=== PATIENT | male | born 1965 ===

== ENCOUNTER 2016-12-31 16:28 | Observation (INO) | payer OTHER ==
[2016-12-31 17:18] LABS: EOS % 0.1 % (0.0-4.0); HEMATOCRIT 42.4 % (35.0-51.0); LYMPH # 0.9 K/uL (1.0-4.3); LYMPH % 21.3 % (20.0-40.0); MEAN CELL VOLUME 88.2 fl (80.0-94.0); MEAN CORPUSCULAR HEMOGLOBIN 29.6 pg (27.0-31.0); MEAN CORPUSCULAR HGB CONC 33.5 g/dL (33.0-37.0); MEAN PLATELET VOLUME 8.7 fl (7.2-11.7); MONO # 0.4 K/uL (0.0-0.8); MONO % 10.1 % (0.0-10.0); NEUT # 2.8 K/uL (1.8-7.0); NEUT % 67.5 % (50.0-75.0); NRBC % 0.1 % (0.0-0.0); RED CELL DISTRIBUTION WIDTH 13.6 % (11.5-14.5); WHITE BLOOD COUNT 4.2 K/uL (4.8-10.8)
[2016-12-31] MEDS ORDERED: HYDROmorphone 0.5 mg/0.5 ml ISec ONE (17:18)
[2016-12-31] MEDS ORDERED: HYDROmorphone 0.5 mg/0.5 ml ISec IVP STA (17:22)
--- NOTE | 2016-12-31 17:29 | ED PDOC ---
HPI: General Adult Time Seen by Provider: 12/31/16 16:40 Chief Complaint (Nursing): Trauma Chief Complaint (Provider): Fall History/Exam Limitations: no limitations Onset/Duration Of Symptoms: Hrs (about 7 hours ago) Additional Complaint(s): 16:42 Freddy Ruiz is a 51 year old male with no past medical history that presents to the ED after falling off of a 10 foot ladder and onto his back at 10:00 AM this morning. Patient states that he did not hit his head, but that his back pain is so severe he is having trouble breathing. He denies any headache, chest pain, or neck pain. PMD: None Past Medical History Reviewed: Historical Data, Nursing Documentation, Vital Signs Vital Signs: Last Vital Signs Temp 97.5 F L 12/31/16 22:31 Pulse 76 12/31/16 22:31 Resp 16 12/31/16 22:31 BP 128/83 12/31/16 22:31 Pulse Ox 99 12/31/16 22:46 - Medical History PMH: No Chronic Diseases - Surgical History Surgical History: No Surg Hx - Family History Family History: States: Unknown Family Hx - Social History Current smoker - smoking cessation education provided: No (pt states he smokes occasionally) Ex-Smoker (has not smoked in the last 12 months): (patient states he smokes occasionally) Alcohol: Occasional Drugs: Denies - Home Medications Home Medications: Ambulatory Orders Medication Instructions Recorded No Known Home Med 12/31/16 - Allergies Allergies/Adverse Reactions: Allergies Allergy/AdvReac Type Severity Reaction Status Date / Time No Known Allergies Allergy Verified 12/31/16 16:37 Review of Systems ROS Statement: Except As Marked, All Systems Reviewed And Found Negative Cardiovascular: Negative for: Chest Pain Musculoskeletal: Positive for: Back Pain. Negative for: Neck Pain Neurological: Negative for: Headache Physical Exam - Reviewed Nursing Documentation Reviewed: Yes Vital Signs Reviewed: Yes - Physical Exam Appears: Positive for: Non-toxic, No Acute Distress Head Exam: Positive for: ATRAUMATIC, NORMOCEPHALIC Skin: Positive for: Normal Color, Warm Eye Exam: Positive for: Normal appearance ENT: Positive for: Normal ENT Inspection Neck: Positive for: Normal, Painless ROM Cardiovascular/Chest: Positive for: Regular Rate, Rhythm. Negative for: Murmur Respiratory: Positive for: Normal Breath Sounds. Negative for: Decreased Breath Sounds Gastrointestinal/Abdominal: Positive for: Normal Exam Back: Positive for: Other (bilateral paraspinal tenderness, no step offs, hematoma). 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 Negative for: Aphasia, Facial Droop Comments: no hematomas, no skin breakdown - Laboratory Results Result Diagrams: 12/31/16 17:00 12/31/16 17:00 - ECG O2 Sat by Pulse Oximetry: 99 (RA) Pulse Ox Interpretation: Normal Medical Decision Making Medical Decision Makin:50 Initial Impression: Back Pain Initial Plan: * CT Scan Cervical Spine w/o contrast * CT Scan Head w/o contrast * CT Scan Lumbar Spine w/o contrast * CT Scan Thoracic Spine w/o contrast * Chest X-Ray * CBC * PTT * PT * Urine C&S * Urinalysis * Morphine 6 mg IV * Reevaluation 21:15 Reviewed reports. Patient still in pain, will be given [address] Cervical Spine w/o contrast FINDINGS: VERTEBRAE: No fracture. Normal alignment. No destructive bony lesion. DISCS/SPINAL CANAL/NEURAL FORAMINA: No significant central canal or neural foraminal stenosis. Discs heights are grossly preserved. PARASPINAL SOFT TISSUES: Unremarkable. OTHER FINDINGS: None. IMPRESSION: Unremarkable CT of the cervical spine. CT Head w/o contrast FINDINGS: HEMORRHAGE: No intracranial hemorrhage. BRAIN: Fonseca-white matter differentiation is preserved. There is no mass, mass effect or abnormal extra-axial fluid collection. VENTRICLES: There is mild age-related global parenchymal volume loss and proportionate enlargement of the ventricles and cortical sulci. CALVARIUM: There is no calvarial fracture or extracranial soft tissue swelling. PARANASAL SINUSES: Predominantly clear. MASTOID AIR CELLS: Predominantly clear. OTHER FINDINGS: None. IMPRESSION: No acute intracranial abnormality. CT Lumbar Spine w/o contrast FINDINGS: VERTEBRAE: Unremarkable. No fracture. Normal alignment. DISCS/SPINAL CANAL/NEURAL FORAMINA: L1-2: Unremarkable. L2-3: Unremarkable. L3-4: Unremarkable. L4-5: Mild disc bulge L5-S1: Mild disc bulge PARASPINAL SOFT TISSUES: Unremarkable. OTHER FINDINGS: None. IMPRESSION: No acute findings CT Scan Thoracic Spine w/o contrast FINDINGS: VERTEBRAE: Unremarkable. No fracture. Normal alignment. DISCS/SPINAL CANAL/NEURAL FORAMINA: Within the limits of the CT technique, no disc herniation seen. No central canal or neural foraminal stenosis.. PARASPINAL SOFT TISSUES: Unremarkable. OTHER FINDINGS: There is calcification of the anterior longitudinal ligament. IMPRESSION: No acute findings Chest X-Ray FINDINGS: LUNGS: The lungs are well inflated and clear. PLEURA: No significant pleural effusion identified, no pneumothorax apparent. CARDIOVASCULAR: Normal. OSSEOUS STRUCTURES: No significant abnormalities. VISUALIZED UPPER ABDOMEN: Normal. OTHER FINDINGS: None. IMPRESSION: No active pulmonary disease. 22:17 Patient has intractable pain. requiring multiple rounds of narcotics. pt has no primary MD, to be admitted under the care of Dr. Carlos. Scribe Attestation: Documented by Leesa Mcginnis, acting as a scribe for Summer Villeda MD. Provider Scribe Attestation: All medical record entries made by the Scribe were at my direction and personally dictated by me. I have reviewed the chart and agree that the record accurately reflects my personal performance of the history, physical exam, medical decision making, and the department course for this patient. I have also personally directed, reviewed, and agree with the discharge instructions and disposition. Disposition - Clinical Impression Clinical Impression: Intractable back pain - Patient ED Disposition Is Patient to be Admitted: Yes Discussed With DrTabitha: Elizabeth Carlos Counseled Patient/Family Regarding: Studies Performed - Disposition Disposition Time: 19:25 Condition: STABLE
[2016-12-31 17:34] LABS: PARTIAL THROMBOPLASTIN TIME 29.6 SECONDS (23.3-32.5)
--- NOTE | 2016-12-31 17:37 | RAD ---
HISTORY: sob COMPARISON: No prior. FINDINGS: LUNGS: The lungs are well inflated and clear. PLEURA: No significant pleural effusion identified, no pneumothorax apparent. CARDIOVASCULAR: Normal. OSSEOUS STRUCTURES: No significant abnormalities. VISUALIZED UPPER ABDOMEN: Normal. OTHER FINDINGS: None. IMPRESSION: No active pulmonary disease.
[2016-12-31 17:44] LABS: ALB/GLOB RATIO 1.3 (1.0-2.1); ALKALINE PHOSPHATASE 77 U/L (38-126); ALT/SGPT 54 U/L (21-72); AST/SGOT 94 U/L (17-59); BILIRUBIN,TOTAL 0.5 mg/dl (0.2-1.3); BLOOD UREA NITROGEN 17 mg/dl (9-20); CALCIUM 8.8 mg/dL (8.4-10.2); CARBON DIOXIDE 23 mmol/L (22-30); CHLORIDE 100 mmol/L (98-107); GFR AFRICAN-AMERICAN > 60; GLUCOSE,RANDOM 114 mg/dL (75-110); POTASSIUM 3.4 MMOL/L (3.6-5.0); SODIUM 137 mmol/l (132-148); TOTAL PROTEIN 7.4 G/DL (6.3-8.2)
--- NOTE | 2016-12-31 17:52 | CT ---
PROCEDURE: CT HEAD WITHOUT CONTRAST. HISTORY: Fall COMPARISON: None available. TECHNIQUE: Axial computed tomography images were obtained through the head/brain without intravenous contrast. Radiation dose: Total exam DLP = 1500.60 mGy-cm. FINDINGS: HEMORRHAGE: No intracranial hemorrhage. BRAIN: Fonseca-white matter differentiation is preserved. There is no mass, mass effect or abnormal extra-axial fluid collection. VENTRICLES: There is mild age-related global parenchymal volume loss and proportionate enlargement of the ventricles and cortical sulci. CALVARIUM: There is no calvarial fracture or extracranial soft tissue swelling. PARANASAL SINUSES: Predominantly clear. MASTOID AIR CELLS: Predominantly clear. OTHER FINDINGS: None. IMPRESSION: No acute intracranial abnormality.
--- NOTE | 2016-12-31 18:04 | CT ---
PROCEDURE: CT Cervical Spine without contrast HISTORY: Status post fall COMPARISON: None available. TECHNIQUE: Axial computed tomography images were obtained of the cervical spine without the use of intravenous contrast. Coronal and sagittal reformatted images were created and reviewed. Radiation dose: Total exam DLP = 498 mGy-cm. FINDINGS: VERTEBRAE: No fracture. Normal alignment. No destructive bony lesion. DISCS/SPINAL CANAL/NEURAL FORAMINA: No significant central canal or neural foraminal stenosis. Discs heights are grossly preserved. PARASPINAL SOFT TISSUES: Unremarkable. OTHER FINDINGS: None. IMPRESSION: Unremarkable CT of the cervical spine.
--- NOTE | 2016-12-31 18:34 | CT ---
PROCEDURE: CT Lumbar Spine without contrast HISTORY: sp fall COMPARISON: None. TECHNIQUE: Axial computed tomography images were obtained of the lumbar spine without the use of intravenous contrast. Coronal and sagittal reformatted images were created and reviewed. Radiation dose: Total exam DLP = 1363 mGy-cm. FINDINGS: VERTEBRAE: Unremarkable. No fracture. Normal alignment. DISCS/SPINAL CANAL/NEURAL FORAMINA: L1-2: Unremarkable. L2-3: Unremarkable. L3-4: Unremarkable. L4-5: Mild disc bulge L5-S1: Mild disc bulge PARASPINAL SOFT TISSUES: Unremarkable. OTHER FINDINGS: None. IMPRESSION: No acute findings
--- NOTE | 2016-12-31 18:36 | CT ---
PROCEDURE: CT Thoracic Spine without contrast HISTORY: fall back pain COMPARISON: None. TECHNIQUE: Axial computed tomography images were obtained of the thoracic spine without intravenous contrast. Coronal and sagittal reformatted images were created and reviewed. Radiation dose: Total exam DLP = 1235 mGy-cm. FINDINGS: VERTEBRAE: Unremarkable. No fracture. Normal alignment. DISCS/SPINAL CANAL/NEURAL FORAMINA: Within the limits of the CT technique, no disc herniation seen. No central canal or neural foraminal stenosis.. PARASPINAL SOFT TISSUES: Unremarkable. OTHER FINDINGS: There is calcification of the anterior longitudinal ligament. IMPRESSION: No acute findings
[2016-12-31] MEDS ORDERED: Potassium Chloride 20 mEq ER Tab PO ONE (20:49)
[2016-12-31] MEDS ORDERED: Oxycodone/Acetaminophen 5/325 mg Tab PO PRN (22:20)
--- NOTE | 2016-12-31 22:29 | CP.PCM.HP ---
History of Present Illness - History of Present Illness History of Present Illness: CC: Fall, pain HPI: This is a 51 y/o male with no chronic medical conditions who fell down a flight of 10 stairs (clarified, not a ladder) earlier today at work; apparently he initially slipped and fell onto his buttocks and then slipped down severel stairs to the bottom. Per patient, no head trauma. Denies any LOC, but he developed severe back pain after this and this has no abated. No HORNER, CP, or neck pain. He did have some difficulty with deep breathing. ROS: 14 systems reviewed, negative other than HPI. MHx/SHx: None Allergies: NKDA Medications: None Family Hx: None Social Hx: Lives with family, no tobacco use, no significant EtOH use Present on Admission - Present on Admission Any Indicators Present on Admission: No Past Patient History - Past Social History Alcohol: Occasional - PSYCHIATRIC Hx Substance Use: No - SURGICAL HISTORY Hx Surgeries: No - ANESTHESIA Hx Anesthesia: No Meds Allergies/Adverse Reactions: Allergies Allergy/AdvReac Type Severity Reaction Status Date / Time No Known Allergies Allergy Verified 12/31/16 16:37 Physical Exam - Constitutional Appears: No Acute Distress - Head Exam Head Exam: ATRAUMATIC, NORMOCEPHALIC - Eye Exam Eye Exam: EOMI, PERRL - ENT Exam ENT Exam: Mucous Membranes Moist - Neck Exam Neck exam: Positive for: Full Rom - Respiratory Exam Respiratory Exam: Clear to Auscultation Bilateral, NORMAL BREATHING PATTERN - Cardiovascular Exam Cardiovascular Exam: REGULAR RHYTHM, +S1, +S2 - GI/Abdominal Exam GI & Abdominal Exam: Normal Bowel Sounds, Soft - Extremities Exam Extremities exam: Positive for: full ROM, normal inspection - Back Exam Back exam: NORMAL INSPECTION - Neurological Exam Neurological exam: Alert, CN II-XII Intact, Oriented x3 - Psychiatric Exam Psychiatric exam: Normal Affect, Normal Mood - Skin Skin Exam: Dry, Warm Results - Vital Signs Recent Vital Signs: Last Vital Signs Temp 98.1 F 12/31/16 16:37 Pulse 99 H 12/31/16 16:37 Resp 16 12/31/16 16:37 BP 137/79 12/31/16 16:37 Pulse Ox 99 12/31/16 21:52 - Labs Result Diagrams: 12/31/16 17:00 12/31/16 17:00 Labs: Laboratory Results - last 24 hr 12/31/16 17:00 WBC 4.2 L RBC 4.80 Hgb 14.2 Hct 42.4 MCV 88.2 MCH 29.6 MCHC 33.5 RDW 13.6 Plt Count 195 MPV 8.7 Neut % (Auto) 67.5 Lymph % (Auto) 21.3 Hitchcock % (Auto) 10.1 H Eos % (Auto) 0.1 Baso % (Auto) 1.0 Neut # 2.8 Lymph # 0.9 L Hitchcock # 0.4 Eos # 0.0 Baso # 0.0 PT 10.6 INR 1.02 APTT 29.6 Sodium 137 Potassium 3.4 L Chloride 100 Carbon Dioxide 23 Anion Gap 17 BUN 17 Creatinine 1.1 Est GFR ( Amer) > 60 Est GFR (Non-Af Amer) > 60 Random Glucose 114 H Calcium 8.8 Total Bilirubin 0.5 AST 94 H ALT 54 Alkaline Phosphatase 77 Total Protein 7.4 Albumin 4.2 Globulin 3.2 Albumin/Globulin Ratio 1.3 - Imaging and Cardiology CT scan - head Status: Report reviewed by me CT scan - chest Status: Report reviewed by me (CT of head/spine did not show any acute findings) Assessment & Plan (1) Fall Assessment and Plan: 51 y/o male with severe back pain after mechanical fall. No obvious fractures or other evidence of significant injury thus far. Neuro intact. Also with Hypo- K. 1) Fall/trauma/pain -Obs -Q4h neuro checks -Pain mgmt per scale 2) Hypo-K -- supplement K and repeat BMP in AM 3) DVT PPx -- SCDs Status: Acute (2) Hypokalemia Status: Acute (3) DVT prophylaxis Status: Acute
[2017-01-01 01:26] VITALS: RESP 20
[2017-01-01 07:22] LABS: BLOOD UREA NITROGEN 12 mg/dl (9-20); CALCIUM 8.3 mg/dL (8.4-10.2); CARBON DIOXIDE 23 mmol/L (22-30); CHLORIDE 97 mmol/L (98-107); GFR AFRICAN-AMERICAN > 60; GLUCOSE,RANDOM 103 mg/dL (75-110); POTASSIUM 3.7 MMOL/L (3.6-5.0); SODIUM 135 mmol/l (132-148)
[2017-01-01 08:47] VITALS: BP 126/75; PULSE 82; TEMP 98.7; O2SAT 93
[2017-01-01 09:17] LABS: URINE BILIRUBIN NEGATIVE (NEGATIVE); URINE BLOOD NEGATIVE (NEGATIVE); URINE COLOR YELLOW (YELLOW); URINE GLUCOSE (UA) NEG (Normal); URINE KETONE TRACE mg/dL (NEGATIVE); URINE LEUKOCYTE ESTERASE NEG Leu/uL (Negative); URINE PROTEIN 30 mg/dL (NEGATIVE); URINE UROBILINOGEN 0.2-1.0 mg/dL (0.2-1.0); WBC URINE 10 /hpf (0-5)
--- NOTE | 2017-01-01 11:37 | CP.PCM.DIS ---
Provider - Provider Date of Admission: 12/31/16 22:17 Attending physician: Elizabeth Carlos MD Time Spent in preparation of Discharge (in minutes): 15 Hospital Course - Lab Results Lab Results: Most Recent Lab Values WBC 4.2 K/uL (4.8-10.8) L 12/31/16 17:00 RBC 4.80 Mil/uL (4.40-5.90) 12/31/16 17:00 Hgb 14.2 g/dL (12.0-18.0) 12/31/16 17:00 Hct 42.4 % (35.0-51.0) 12/31/16 17:00 MCV 88.2 fl (80.0-94.0) 12/31/16 17:00 MCH 29.6 pg (27.0-31.0) 12/31/16 17:00 MCHC 33.5 g/dL (33.0-37.0) 12/31/16 17:00 RDW 13.6 % (11.5-14.5) 12/31/16 17:00 Plt Count 195 K/uL (130-400) 12/31/16 17:00 MPV 8.7 fl (7.2-11.7) 12/31/16 17:00 Neut % (Auto) 67.5 % (50.0-75.0) 12/31/16 17:00 Lymph % (Auto) 21.3 % (20.0-40.0) 12/31/16 17:00 Morton % (Auto) 10.1 % (0.0-10.0) H 12/31/16 17:00 Eos % (Auto) 0.1 % (0.0-4.0) 12/31/16 17:00 Baso % (Auto) 1.0 % (0.0-2.0) 12/31/16 17:00 Neut # 2.8 K/uL (1.8-7.0) 12/31/16 17:00 Lymph # 0.9 K/uL (1.0-4.3) L 12/31/16 17:00 Morton # 0.4 K/uL (0.0-0.8) 12/31/16 17:00 Eos # 0.0 K/uL (0.0-0.7) 12/31/16 17:00 Baso # 0.0 K/uL (0.0-0.2) 12/31/16 17:00 PT 10.6 SECONDS (9.6-11.2) 12/31/16 17:00 INR 1.02 (0.92-1.08) 12/31/16 17:00 APTT 29.6 SECONDS (23.3-32.5) 12/31/16 17:00 Sodium 135 mmol/l (132-148) 01/01/17 05:30 Potassium 3.7 MMOL/L (3.6-5.0) 01/01/17 05:30 Chloride 97 mmol/L (98-107) L 01/01/17 05:30 Carbon Dioxide 23 mmol/L (22-30) 01/01/17 05:30 Anion Gap 19 (10-20) 01/01/17 05:30 BUN 12 mg/dl (9-20) 01/01/17 05:30 Creatinine 0.7 mg/dL (0.8-1.5) L 01/01/17 05:30 Est GFR ( Amer) > 60 01/01/17 05:30 Est GFR (Non-Af Amer) > 60 01/01/17 05:30 Random Glucose 103 mg/dL (75-110) 01/01/17 05:30 Calcium 8.3 mg/dL (8.4-10.2) L 01/01/17 05:30 Total Bilirubin 0.5 mg/dl (0.2-1.3) 12/31/16 17:00 AST 94 U/L (17-59) H 12/31/16 17:00 ALT 54 U/L (21-72) 12/31/16 17:00 Alkaline Phosphatase 77 U/L (38-126) 12/31/16 17:00 Total Protein 7.4 G/DL (6.3-8.2) 12/31/16 17:00 Albumin 4.2 g/dL (3.5-5.0) 12/31/16 17:00 Globulin 3.2 gm/dL (2.2-3.9) 12/31/16 17:00 Albumin/Globulin Ratio 1.3 (1.0-2.1) 12/31/16 17:00 Urine Color Yellow (YELLOW) 12/31/16 16:59 Urine Clarity Turbid (Clear) 12/31/16 16:59 Urine pH 5.0 (5.0-8.0) 12/31/16 16:59 Ur Specific [place] 1.030 (1.003-1.030) 12/31/16 16:59 Urine Protein 30 mg/dL (NEGATIVE) 12/31/16 16:59 Urine Glucose (UA) Neg mg/dL (Normal) 12/31/16 16:59 Urine Ketones Trace mg/dL (NEGATIVE) 12/31/16 16:59 Urine Blood Negative (NEGATIVE) 12/31/16 16:59 Urine Nitrate Negative (NEGATIVE) 12/31/16 16:59 Urine Bilirubin Negative (NEGATIVE) 12/31/16 16:59 Urine Urobilinogen 0.2-1.0 mg/dL (0.2-1.0) 12/31/16 16:59 Ur Leukocyte Esterase Neg Jose Carlos/uL (Negative) 12/31/16 16:59 Urine Microscopic WBC 10 /hpf (0-5) H 12/31/16 16:59 Ur Squamous Epith Cells 1 /hpf (0-5) 12/31/16 16:59 Amorphous Sediment Occ /ul (<OCC) H 12/31/16 16:59 - Hospital Course Hospital Course: This is a 51 y/o male with no chronic medical conditions who fell down a flight of 10 stairs (clarified, not a ladder) earlier today at work; apparently he initially slipped and fell onto his buttocks and then slipped down severel stairs to the bottom. Per patient, no head trauma. Denies any LOC, but he developed severe back pain after this and this has no abated. No HORNER, CP, or neck pain. He did have some difficulty with deep breathing All imaging including Cyt c-spine, thoracic,L-S , Ct head showed no acute pathology , no fractures pqatient was placed under observation for pain management. Strated on Percoset and Flexeril with good response to pain control All reslts were explained to patient and daughter. Will discharge patient home in stable conditions on ultram and Flexeril PRN 1) Fall/trauma/pain 2) Hypo-K -- supplement K and repeat BMP in AM Discharge Exam - Head Exam Head Exam: ATRAUMATIC, NORMOCEPHALIC - Eye Exam Eye Exam: EOMI, Normal appearance, PERRL - ENT Exam ENT Exam: Mucous Membranes Moist, Normal Exam - Neck Exam Neck exam: Full Rom, Normal Inspection - Respiratory Exam Respiratory Exam: Clear to PA & Lateral. absent: Prolonged Expiratory Phase, Rhonchi, Wheezes, Respiratory Distress - Cardiovascular Exam Cardiovascular Exam: REGULAR RHYTHM, +S1, +S2. absent: JVD - GI/Abdominal Exam GI & Abdominal Exam: Normal Bowel Sounds, Soft. absent: Distended, Guarding, Rebound - Rectal Exam Rectal Exam: Deferred - Extremities Exam Extremities exam: normal capillary refill, normal inspection, pedal pulses present - Back Exam Back exam: NORMAL INSPECTION - Neurological Exam Neurological exam: Alert, CN II-XII Intact, Oriented x3, Reflexes Normal - Psychiatric Exam Psychiatric exam: Normal Affect, Normal Mood - Skin Skin Exam: Dry, Intact, Normal Color, Warm Discharge Plan - Follow Up Plan Condition: STABLE Disposition: HOME/ ROUTINE Patient education suggested?: Yes Instructions: Contusion in Adults (DC)
== END 2017-01-01 14:36 | disposition home or self-care (01) ==
LOC: EDSEX 16:28 → H.ER 16:28 → H.ERHOLD 22:17 → H.MEDSURG1 23:47
PROVIDERS: ADMIT Internal Medicine; ATTEND Internal Medicine
DX: M54.9 Dorsalgia, unspecified (principal); F17.200 Nicotine dependence, unspecified, uncomplicated; E87.6 Hypokalemia